=== PATIENT | male | born 1960 | race Caucasian/White ===

== ENCOUNTER → 2017-03-03 | Day surgery (SDC) | payer OTHER ==
[~2017-03-03] MED LIST: ALUPENT14 GM INH; ASACOL400 MG; ASACOL400 MG PO; ASPIRIN EC81 M1 PO; ASPIRIN PO; ASPIRIN81 M1 PO; ATIVAN PO; ATIVAN0.5 M1 PO; BUDESONIDE EC3 MG PO; BUSPAR PO; CERTAGEN PO; COUMADIN7.5 MG PO; CYANOCOBAL1000 MCG/M IM; CYMBALTA PO; DILTIAZEM 24HR120 MG PO; ENTOCORT EC3 MG PO; FEOSOL PO; FERROUS GLUCON324 MG PO; FERROUS SULFATE PO; FLAGYL; FLAGYL PO; FOSAMAX; HYDROCODONE-A1 UDTA2 PO; IBUPROFEN200 M1 PO; IRON; IRON45 MG PO; KEFLEX500 MG PO; LEVAQUIN PO; LEVOTHYROXINE75 MCG PO; LIALDA1.2 G PO; LORTAB 10/500 T1 TAB PO; LORTAB 101 TAB 10/5 PO; METOPROLOL SUCC50 MG PO; MULTI VITAMIN1 EACH PO; MULTI-DAY1 TAB PO; MULTI-VITAMIN1 TAB PO; NORCO 10-325 TA1 TAB PO; OMEPRAZOLE20 M1 PO; OYSTER CALCIUM500 MG; PERCOCET 10/3251 TAB PO; PHENERGAN12.5 MG PO; PRILOSEC PO; PRILOSEC20 M1 PO; PRILOSEC20 MG PO; PROAIR HFA8.5 GM IH; PROVENTIL17 GM IH; PURINETHOL50 M1 PO; PURINETHOL50 MG; PURINETHOL50 MG PO; SEROQUEL PO; SYMBICORT INH; TOPROL XL 50 MG50 MG PO; TOPROL XL PO; TOPROL XL50 MG PO; VICOPROFEN 200-1 TAB PO; VITAMIN C1000 M2 PO; VITAMIN D350000 UNIT PO
--- NOTE | ~2017-03-03 | OR ---
Unit #: [id number] #: [id number] Patient: OSEAS MURDOCK [id number] [address] [place], [place] [address] [id number] O MR#: [id number] NAME: OSEAS MURDOCK ROOM: Date of Procedure: 03/03/2017 Admission Date: 03/03/2017 Surgeon: Terrance Matt M.D. : 1960 Attending Physician: Terrance Matt M.D. Primary Care Physician: Chaz Hernandez M.D. OPERATIVE REPORT PREOPERATIVE DIAGNOSES Neck pain, degenerative cervical disk disease, cervical facet disease, cervical radiculopathy. POSTOPERATIVE DIAGNOSES Neck pain, degenerative cervical disk disease, cervical facet disease, cervical radiculopathy. PROCEDURE PERFORMED Cervical epidural steroid injection with intravenous sedation and fluoroscopic guidance for needle localization. INDICATIONS FOR PROCEDURE The patient is a 56-year-old male, initially injured with neck and upper extremity pain left greater than right, not settle with extensive conservative treatment. His symptoms were consistent with radiculitis in order to have definite compressive pathology, decision made to give a trial of epidural steroids to try to calm this down. Risks and benefits were all reviewed with the patient. DESCRIPTION OF PROCEDURE The patient was placed in a seated position. Standard monitors were applied. 2 mg of Versed were given for sedation and anxiolysis, which were adequate. Vital signs remained stable. Sterile prep and drape then of the cervical area was performed. The skin then at the C5-C6 level was localized with 1% lidocaine. An 18-gauge Hust[employer] needle was then advanced via hanging drop technique and fluoroscopic guidance in toward the epidural space. After confirming proper positioning with fluoroscopy and radiographic contrast, 80 mg of Depo-Medrol and 2 mL of 0.25% bupivacaine were deposited. There was some reproduction of the upper extremity pain during the injection phase, this quickly settled and was discharged to recovery room in stable condition. Dictated by... Terracne Matt M.D. LHP/modl TD: 03/03/2017 23:59 Unit #: [id number] #: [id number] Patient: OSEAS MURDOCK JOB #: [id number] OPERATIVE REPORT Page 1 of 1 X Terrance Matt MD X PROCEDURE OPERATIVE NOTE
== END | disposition home or self-care (01) ==
LOC: CCSC 11:20
DX: M50.10 Cervical disc disorder with radiculopathy, unspecified cervical region (principal)
CPT/HCPCS: J1040; J2250

== ENCOUNTER → 2017-03-17 | Day surgery (SDC) | payer OTHER ==
--- NOTE | ~2017-03-17 | OR ---
Unit #: [id number] #: [id number] Patient: OSEAS MURDOCK [id number] [address] [place], [place] [address] [id number] O MR#: [id number] NAME: OSEAS MURDOCK ROOM: Date of Procedure: 03/17/2017 Admission Date: 03/17/2017 Surgeon: Terrance Matt M.D. : 1960 Attending Physician: Terrance Matt M.D. Primary Care Physician: Chaz Hernandez M.D. OPERATIVE REPORT JOB NOTE: CC: [facility]. PREOPERATIVE DIAGNOSES Neck pain, cervical radiculopathy, cervical disk disease, cervical facet disease. POSTOPERATIVE DIAGNOSES Neck pain, cervical radiculopathy, cervical disk disease, cervical facet disease. PROCEDURES PERFORMED Cervical epidural steroid injection with intravenous sedation and fluoroscopic guidance for needle localization. INDICATIONS FOR PROCEDURE The patient is a 56-year-old male who continues to have neck pain following a work injury. He has not settled with the conservative treatment including rehab, facet injection, medical management. There was a radicular component to his pain. So, the plan is for a trial of epidural steroids. Initial injection 2 weeks ago has not changed his pain substantially. We are going to proceed with a second injection today. If that does no better, we will hold on further treatment from an interventional point of view. DESCRIPTION OF PROCEDURE The patient was placed in a seated position. Standard monitors were applied. 2 mg of Versed were given for sedation and anxiolysis, which were adequate. Vital signs remained stable. Sterile prep and drape then of the cervical area was performed. The skin then at the C7 level was localized with 1% lidocaine. An 18-gauge [email or web address] needle was then advanced via hanging drop technique and fluoroscopic guidance in toward the epidural space. After confirming proper positioning with fluoroscopy and radiographic contrast, 80 mg of Depo-Medrol and 2 mL of 0.25% bupivacaine were deposited. The patient tolerated the procedure otherwise well and was discharged to the recovery room in stable condition. Dictated by... Terrance Matt M.D. P/modl Unit #: [id number] #: [id number] Patient: OSEAS MURDOCK TD: 03/18/2017 00:59 JOB #: [id number] OPERATIVE REPORT Page 1 of 1 X Terrance Matt MD X PROCEDURE OPERATIVE NOTE
== END | disposition home or self-care (01) ==
LOC: CCSC 11:04
DX: M50.10 Cervical disc disorder with radiculopathy, unspecified cervical region (principal); I10 Essential (primary) hypertension; J45.909 Unspecified asthma, uncomplicated
CPT/HCPCS: J1040; J2250